=== PATIENT | female | born 1995 | race Caucasian/White ===

== ENCOUNTER 2017-07-09 22:17 | Emergency (ER) | payer MEDICAID ==
[2017-07-09 22:33] VITALS: BMI 27.4
[2017-07-09] MEDS ORDERED: Sodium Chloride 0.9% 1,000 ML IV STA (22:53)
[2017-07-09] MEDS ORDERED: Albuterol-Ipratrop 3 mg / 0.5 (3 ml) UD IH STA (22:53)
--- NOTE | 2017-07-09 22:57 | ED PDOC ---
Arrival/HPI - General Chief Complaint: Shortness Of Breath Time Seen by Provider: 07/09/17 22:51 Historian: Patient - History of Present Illness Narrative History of Present Illness (Text): 07/09/17 22:54 21 y/o female, pmh including asthma, nkda, c/o chest pain and shortness of breath x 1 day. Pt. stated that she woke up this morning with the chest pain with tightness and getting the air in and out, no palpitation, no rash, no numbness or tingling, no nausea or vomiting, no abdominal pain, no diarrhea, no other medical or psychological complaints. Past Medical History - Provider Review Nursing Documentation Reviewed: Yes - Infectious Disease Hx of Infectious Diseases: None - Past Medical History Past Medical History: No Previous - Pulmonary Hx Asthma: Yes ( A CHILD) - Psychiatric Hx Psychophysiologic Disorder: No Hx Substance Use: No - Past Surgical History Past Surgical History: No Previous - Anesthesia Hx Anesthesia: No - Suicidal Assessment Feels Threatened In Home Enviroment: No Family/Social History - Physician Review Nursing Documentation Reviewed: Yes Family/Social History: Unknown Family HX Smoking Status: Never Smoked Hx Alcohol Use: No Hx Substance Use: No Hx Substance Use Treatment: No Allergies/Home Meds Allergies/Adverse Reactions: Allergies No Known Allergies Allergy (Verified 09/11/16 13:01) Review of Systems - Review of Systems Constitutional: absent: Fatigue, Fevers Eyes: absent: Vision Changes ENT: absent: Hearing Changes Respiratory: absent: SOB, Cough Cardiovascular: Chest Pain. absent: Palpitations, Other Gastrointestinal: absent: Abdominal Pain, Nausea, Vomiting Musculoskeletal: absent: Arthralgias Skin: absent: Rash, Pruritis Neurological: absent: Headache, Dizziness Physical Exam Vital Signs Reviewed: Yes Vital Signs Temp Pulse Resp BP Pulse Ox 07/10/17 01:01 98.6 F 79 17 118/69 100 07/09/17 22:56 82 18 125/79 98 07/09/17 22:45 16 Blood Pressure: Normal Pulse: Regular Respiratory Rate: Normal Appearance: Positive for: Well-Appearing, Non-Toxic, Comfortable Pain Distress: Moderate Mental Status: Positive for: Alert and Oriented X 3 - Systems Exam Head: Present: Atraumatic, Normocephalic Pupils: Present: PERRL Extroacular Muscles: Present: EOMI Conjunctiva: Present: Normal Mouth: Present: Moist Mucous Membranes Neck: Present: Normal Range of Motion Respiratory/Chest: Present: Clear to Auscultation, Good Air Exchange, Tender to Palpation (pain is 100% reproducible on the bilateral rib cage regions. ). No: Respiratory Distress, Accessory Muscle Use, Wheezes, Decreased Breath Sounds, Rales, Retracting, Rhonchi, Tachypneic, Other Cardiovascular: Present: Regular Rate and Rhythm, Normal S1, S2, Other (no pedal edema). No: Murmurs Abdomen: Present: Normal Bowel Sounds. No: Tenderness, Distention, Peritoneal Signs Back: Present: Normal Inspection. No: CVA Tenderness, Midline Tenderness, Paraspinal Tenderness Upper Extremity: Present: Normal Inspection. No: Cyanosis, Edema Lower Extremity: Present: Normal Inspection. No: Edema Neurological: Present: GCS=15, CN II-XII Intact, Speech Normal Skin: Present: Warm, Dry, Normal Color. No: Rashes Psychiatric: Present: Alert, Oriented x 3, Normal Insight, Normal Concentration Medical Decision Making ED Course and Treatment: 07/09/17 22:56 -labs -ekg/cxr -IVF/duoneb/toradol 07/10/17 00:55 -EKG: NSR @ 76 BPM, no ST elevation or depression, T wave inversion noted on the lead III. -Chest x-ray show no active disease -Labs are non-significant, negative BNP, negative troponin, negative d-dimer -pt. feels better, will discharge home. -Discharge home with albuterol mdi, motrin, stay hydrated, bed rest, follow up with your own pmd and central office frame wirer within 2 days, return to the ER for any new or worsening signs or symptoms. - Lab Interpretations Lab Results: 07/09/17 23:45 07/09/17 23:45 Lab Results 07/09/17 23:45: WBC 6.4, RBC 4.39, Hgb 12.8, Hct 37.2, MCV 84.7, MCH 29.2, MCHC 34.4, RDW 13.1, Plt Count 177, MPV 10.2, Gran % 61.2, Lymph % (Auto) 31.0, [place] % (Auto) 6.7 H, Eos % (Auto) 0.8 L, Baso % (Auto) 0.3, Gran # 3.91, Lymph # 2.0 , [place] # 0.4, Eos # 0.1, Baso # 0.02 07/09/17 23:45: Sodium 145, Potassium 3.8, Chloride 108 H, Carbon Dioxide 25, Anion Gap 16, BUN 14, Creatinine 0.7, Est GFR ( Amer) > 60, Est GFR (Non- Af Amer) > 60, Random Glucose 104, Calcium 9.2, Total Bilirubin 0.4, AST 19, ALT 21, Alkaline Phosphatase 48, Lactate Dehydrogenase 495, Total Creatine Kinase 72, Troponin I < 0.01, NT-Pro-B Natriuret Pep 37.7, Total Protein 7.0, Albumin 4.3, Globulin 2.7, Albumin/Globulin Ratio 1.6 07/09/17 23:45: D-Dimer, Quantitative 0.30 I have reviewed the lab results: Yes Interpretation: No clinic. lab abnormalty - RAD Interpretation Radiology Orders: 07/09/17 22:53 CHEST PORTABLE [RAD] Stat no active disease Hospital Recruiter: Radiologist - EKG Interpretation EKG Interpretation (Text): 07/10/17 00:51 EKG: NSR @ 76 BPM, no ST elevation or depression, T wave inversion noted on the lead III. Interpreted by ED Physician: Yes Type: 12 lead EKG Comparison: Com.w/previous EKG - Medication Orders Current Medication Orders: Discontinued Medications Albuterol/Ipratropium (Duoneb 3 Mg/0.5 Mg (3 Ml) Ud) 3 ml IH STAT STA Stop: 07/09/17 22:54 Last Admin: 07/09/17 23:38 Dose: 3 ml Sodium Chloride (Sodium Chloride 0.9%) 1,000 mls @ 999 mls/hr IV .Q1H1M STA Stop: 07/09/17 23:53 Last Admin: 07/09/17 23:38 Dose: 999 mls/hr eMAR Start Stop Document 07/09/17 23:38 OCS (Rec: 07/09/17 23:38 OCS [id number]) Intravenous Solution Start Date 07/09/17 Start Time 23:38 Ketorolac Tromethamine (Toradol) 30 mg IVP STAT STA Stop: 07/09/17 22:54 Last Admin: 07/09/17 23:38 Dose: 30 mg MAR Pain Assessment Document 07/09/17 23:38 [facility]CS (Rec: 07/09/17 23:38 [id number] Pain Reassessment Is this a pain reassessment? Yes Sleep Is patient sleeping during reassessment? No Presence of Pain Presence of Pain Yes Pain Scale Used Pain Scale Used Numeric Location Pain Location Body Fermentation Operator Description Description Constant Intensity of Pain at present 10 IVP Administration Document 07/09/17 23:38 [facility] (Rec: 07/09/17 23:38 [id number] Charges for Administration # of IVP Administrations 1 - PA / LITERARY AGENT / Resident Statement / has reviewed & agrees with the documentation as recorded. Disposition/Present on Arrival - Present on Arrival Any Indicators Present on Arrival: No History of DVT/PE: No History of Uncontrolled Diabetes: No Urinary Catheter: No History of Decub. Ulcer: No History Surgical Site Infection Following: None - Disposition Have Diagnosis and Disposition been Completed?: Yes Diagnosis: Costochondritis Disposition: HOME/ ROUTINE Disposition Time: 00:55 Patient Plan: Discharge Condition: IMPROVED Additional Instructions: -Discharge home with albuterol mdi, motrin, stay hydrated, bed rest, follow up with your own pmd and central office frame wirer within 2 days, return to the ER for any new or worsening signs or symptoms. Prescriptions: Albuterol HFA [Ventolin HFA 90 mcg/actuation (8 g)] 2 puff IH [id number] PRN #1 in PRN Reason: Other Ibuprofen [Motrin] 600 mg PO QID PRN #24 tab PRN Reason: Other Referrals: Francie George DO [Primary Care Provider] - Follow up with primary Trey Santa MD [Staff Provider] - Follow up with primary Forms: [employer] (Pashto), WORK NOTE
[2017-07-10 00:07] LABS: BASO # 0.02 K/mm3 (0.0-2.0); BASO % 0.3 % (0.0-3.0); EOS # 0.1 (0.0-0.7); EOS % 0.8 % (1.5-5.0); GRAN # 3.91 (1.4-6.5); GRAN % 61.2 % (50.0-68.0); HEMATOCRIT 37.2 % (36.0-48.0); MEAN CELL VOLUME 84.7 fl (80.0-105.0); MEAN CORPUSCULAR HEMOGLOBIN 29.2 pg (25.0-35.0); MEAN CORPUSCULAR HGB CONC 34.4 g/dl (31.0-37.0); MEAN PLATELET VOLUME 10.2 fl (7.0-11.0); MONO # 0.4 (0.1-0.6); MONO % 6.7 % (1.0-6.0); RED CELL DISTRIBUTION WIDTH 13.1 % (11.5-14.5); WHITE BLOOD COUNT 6.4 10^3/ul (4.5-11.0)
[2017-07-10 00:21] LABS: ALB/GLOB RATIO 1.6 (1.1-1.8); ALKALINE PHOSPHATASE 48 U/L (38-126); ALT/SGPT 21 U/L (7-56); AST/SGOT 19 U/L (14-36); BILIRUBIN,TOTAL 0.4 mg/dL (0.2-1.3); BLOOD UREA NITROGEN 14 mg/dL (7-21); CALCIUM 9.2 mg/dL (8.4-10.5); CARBON DIOXIDE 25 mmol/L (21-33); CHLORIDE 108 mmol/L (98-107); GFR AFRICAN-AMERICAN > 60; GLUCOSE,RANDOM 104 mg/dL (70-110); POTASSIUM 3.8 mmol/L (3.6-5.0); SODIUM 145 mmol/L (132-148)
[2017-07-10 00:43] LABS: TROPONIN I < 0.01 ng/mL
[2017-07-10 01:02] VITALS: BP 118/69; PULSE 79; RESP 17; TEMP 98.6; O2SAT 100
--- NOTE | 2017-07-10 08:59 | RAD ---
HISTORY: medical clearance COMPARISON: 11/11/2015 FINDINGS: LUNGS: No active pulmonary disease. PLEURA: No significant pleural effusion identified, no pneumothorax apparent. CARDIOVASCULAR: Normal. OSSEOUS STRUCTURES: No significant abnormalities. VISUALIZED UPPER ABDOMEN: Normal. OTHER FINDINGS: None. IMPRESSION: No active disease.
--- NOTE | 2017-07-10 09:10 | CARD ---
APPROVED REPORT EKG Measurement Heart [id number] [id number] <Conclusion> Normal sinus rhythm Normal ECG
== END 2017-07-10 00:56 | disposition home or self-care (01) ==
LOC: ED 22:17
DX: M94.0 Chondrocostal junction syndrome [Tietze] (principal)
CPT/HCPCS: 71010; 80053; 82550; 83615; 83880; 84484; 85025; 85378; 93005; 96374; 99283; J1885; J7040

== ENCOUNTER 2017-12-12 14:28 | Emergency (ER) | payer MEDICAID ==
[2017-12-12] MEDS ORDERED: Famotidine 20mg/50ml 20 MG/50 ML BAG IVPB STA (14:53)
[2017-12-12] MEDS ORDERED: Alum-Mag Hydrox-Simethicone Susp (30 mL) PO STA (14:53)
[2017-12-12 14:54] VITALS: BMI 28.3
--- NOTE | 2017-12-12 14:54 | ED PDOC ---
Arrival/HPI - General Chief Complaint: Chest Pain Time Seen by Provider: 12/12/17 14:44 Historian: Patient - History of Present Illness Narrative History of Present Illness (Text): 12/12/17 1450 pt p/w + ~ 1 day onset of intermittent, lasting few min onset of substernal chest tightness/cramps, at most pain is 9-10/10; pt + palpitations, intermittent mild sob, no pleuritic chest pain; no fever/chills/sweats, no abd pain, no n/v, no numbness/tingling, no urinary/bowel changes, no fall/trauma/ sick contact, no travel; pt states similar chest pain had occurred in the past which brought her to [place] [facility] as well as to [facility] and evaluation there as well as here at that time did not reveal any causes of pt's intermittent chest pain; pt became alarmed due to the severity of pain pt denied rashes pt denied other complaints pt is here for further eval. Family HX: unremarkable pt is right hand dominate Time/Duration: 24 hours Symptom Onset: Sudden Quality: Tightness Severity Level: 9, Severe Activities at Onset: Rest Context: Home Past Medical History - Provider Review Nursing Documentation Reviewed: Yes - Travel History Have you recently traveled outside [place] w/in the past 3 mons?: No - Past History Past History: No Previous - Infectious Disease Hx of Infectious Diseases: None - Past Medical History Past Medical History: No Previous - Pulmonary Hx Asthma: Yes ( A CHILD) - Psychiatric Hx Psychophysiologic Disorder: No Hx Substance Use: No - Past Surgical History Past Surgical History: No Previous - Anesthesia Hx Anesthesia: No - Suicidal Assessment Feels Threatened In Home Enviroment: No Family/Social History - Physician Review Nursing Documentation Reviewed: Yes Family/Social History: No Known Family HX Smoking Status: Never Smoked Hx Alcohol Use: No Hx Substance Use: No Hx Substance Use Treatment: No Allergies/Home Meds Allergies/Adverse Reactions: Allergies No Known Allergies Allergy (Verified 09/11/16 13:01) Home Medications: Home Meds Medication Instructions Recorded Confirmed No Known Home Med 12/12/17 12/12/17 Review of Systems - Review of Systems Constitutional: Normal Eyes: Normal ENT: Normal Respiratory: SOB Cardiovascular: Chest Pain, Palpitations Gastrointestinal: Normal Genitourinary Female: Normal Musculoskeletal: Normal Skin: Normal Neurological: Normal Endocrine: Normal Hemo/Lymphatic: Normal Psychiatric: Normal Physical Exam Vital Signs Reviewed: Yes Vital Signs Pulse Resp BP Pulse Ox 12/12/17 17:50 64 18 116/76 98 12/12/17 15:07 60 18 118/71 98 Temperature: Afebrile Blood Pressure: Normal Pulse: Regular Respiratory Rate: Normal Appearance: Positive for: Well-Appearing, Non-Toxic, Comfortable, Other ( resting in bed, comfortable, NAD, alert/awake, GCS = 15, oriented x 3, cooperative) Pain Distress: None Mental Status: Positive for: Alert and Oriented X 3 - Systems Exam Head: Present: Atraumatic, Normocephalic Pupils: Present: PERRL, Other (no nystagmus, no photophobia, sclera anicteric) Extroacular Muscles: Present: EOMI Conjunctiva: Present: Normal Ears: Present: Normal Mouth: Present: Moist Mucous Membranes, Normal Teeth Pharnyx: Present: Normal Nose (External): Present: Atraumatic Nose (Internal): Present: Normal Inspection Neck: Present: Normal Range of Motion, Meningeal Signs, Trachea Midline. No: MIDLINE TENDERNESS Respiratory/Chest: Present: Clear to Auscultation, Good Air Exchange Cardiovascular: Present: Regular Rate and Rhythm, Normal S1, S2. No: Murmurs Abdomen: Present: Normal Bowel Sounds, Other (well nourished female, no focal tenderness, no masses/rebound/guarding/rigidity, no mcburney's point tenderness , no masses/rebound/guarding/rigidity) Back: Present: Normal Inspection. No: Midline Tenderness Upper Extremity: Present: Normal Inspection, Normal ROM, NORMAL PULSES, Neurovascularly Intact, Capillary Refill < 2s Lower Extremity: Present: Normal Inspection, NORMAL PULSES, Normal ROM, Neurovascularly Intact, Capillary Refill < 2 s. No: CALF TENDERNESS, Yakov's Sign Neurological: Present: GCS=15, CN II-XII Intact, Speech Normal Skin: Present: Warm, Normal Color Psychiatric: Present: Alert, Oriented x 3 Medical Decision Making ED Course and Treatment: 12/12/17 1445 Impression: chest pain/palpitation i have consider all the differential diagnosis regarding pt's chief medical complaints/clinical findings, including but are not limited to: atypical chest pain/palpitations A/P: chest pain/palpitations - xray - labs - observe - supportive care 12/12/17 1710 pt is doing well and is comfortable 1745 pt is made aware of her medical results pt is encouraged avoidance of eating prior to sleeping, avoid spicy foods, avoid caffeine products pt is encouraged fluid hydration pt will f/u as directed pt will be discharged home Re-evaluation Time: 17:30 Reassessment Condition: Improved - Lab Interpretations Lab Results: 12/12/17 15:00 12/12/17 15:00 Lab Results 12/12/17 15:00: Sodium 141, Potassium 4.1, Chloride 104, Carbon Dioxide 26, Anion Gap 15, BUN 13, Creatinine 0.7, Est GFR ( Amer) > 60, Est GFR (Non- Af Amer) > 60, Random Glucose 97, Calcium 9.7, Lactate Dehydrogenase 394, Total Creatine Kinase 49, Troponin I < 0.01 12/12/17 15:00: Urine Color Yellow, Urine Appearance Slight-cloudy, Urine pH 6.5 , Ur Specific Solo 1.020, Urine Protein Negative, Urine Glucose (UA) Negative , Urine Ketones Negative, Urine Blood Negative, Urine Nitrate Negative, Urine Bilirubin Negative, Urine Urobilinogen 0.2, Ur Leukocyte Esterase Large H, Urine RBC 0 - 2, Urine WBC 2 - 5, Ur Epithelial Cells 1 - 3, Urine Bacteria Many 12/12/17 15:00: D-Dimer, Quantitative 219 12/12/17 15:00: WBC 5.3, RBC 4.51, Hgb 13.3, Hct 38.6, MCV 85.6, MCH 29.5, MCHC 34.5, RDW 12.9, Plt Count 176, MPV 10.8, Gran % 61.0, Lymph % (Auto) 31.9, [place] % (Auto) 5.9, Eos % (Auto) 0.8 L, Baso % (Auto) 0.4, Gran # 3.23, Lymph # (Auto ) 1.7, [place] # (Auto) 0.3, Eos # (Auto) 0.0, Baso # (Auto) 0.02 I have reviewed the lab results: Yes Interpretation: All labs normal - RAD Interpretation Narrative RAD Interpretations (Text): 12/12/17 16:54 Chest X-ray reviewed by radiologist, shows no active disease. Radiology Orders: 12/12/17 14:51 CHEST TWO VIEWS (PA/LAT) [RAD] Stat Endoscope Technician: Radiologist - EKG Interpretation EKG Interpretation (Text): 12/12/17 15:40 NSR at 60 bpm, normal axis, no ectopy, inverted T in leads III, no st changes, NORMAL EKG; unchanged compare with old ekg 11/2016 Interpreted by ED Physician: Yes Type: 12 lead EKG Comparison: Similar to previous EKG - Medication Orders Current Medication Orders: Discontinued Medications Al Hydrox/Mg Hydrox/Simethicone (Maalox Plus 30 Ml) 30 ml PO STAT STA Stop: 12/12/17 14:54 Last Admin: 12/12/17 15:08 Dose: 30 ml Famotidine (Pepcid 20mg/50ml Premix) 20 mg in 50 mls @ 100 mls/hr IVPB STAT STA Stop: 12/12/17 15:22 Last Admin: 12/12/17 15:08 Dose: 100 mls/hr eMAR Start Stop Document 12/12/17 15:08 GMD (Rec: 12/12/17 15:08 GMD [id number]) Intravenous Solution Start Date 12/12/17 Start Time 15:08 End Date 12/12/17 End time 15:38 Total Infusion Time 30 Disposition/Present on Arrival - Present on Arrival Any Indicators Present on Arrival: No History of DVT/PE: No History of Uncontrolled Diabetes: No Urinary Catheter: No History Surgical Site Infection Following: None - Disposition Have Diagnosis and Disposition been Completed?: Yes Diagnosis: Atypical chest pain, Palpitations Disposition: HOME/ ROUTINE Disposition Time: 17:42 Patient Plan: Discharge Condition: STABLE Discharge Instructions (ExitCare): Palpitations, Chest Pain That Is Not Caused by the Heart (DC), Chest Pain (ED) Print Language: NEPALESE Additional Instructions: Make sure to see your doctor in 1-2 days DRINK PLENTY OF FLUIDS DONT eat before you go to sleep RETURN TO ED IF worse pain, cant breath, persistent vomiting, high fever >101- 102 for hours, altered behavior, unable to urinate, heavy/persistent bleeding, passing out, chest pain, or other medical emergencies Referrals: Ester Rodney, GUN WELDER [Primary Care Provider] - Follow up with primary Forms: [employer] (Icelandic)
[2017-12-12 15:07] VITALS: RESP 18; O2SAT 98
[2017-12-12 15:18] LABS: BASO # 0.02 K/mm3 (0.0-2.0); BASO % 0.4 % (0.0-3.0); EOS % 0.8 % (1.5-5.0); GRAN # 3.23 (1.4-6.5); HEMOGLOBIN 13.3 g/dL (12.0-16.0); LYMPH # 1.7 (1.2-3.4); LYMPH % 31.9 % (22.0-35.0); MEAN CELL VOLUME 85.6 fl (80.0-105.0); MEAN CORPUSCULAR HEMOGLOBIN 29.5 pg (25.0-35.0); MEAN CORPUSCULAR HGB CONC 34.5 g/dl (31.0-37.0); MEAN PLATELET VOLUME 10.8 fl (7.0-11.0); MONO # 0.3 (0.1-0.6); MONO % 5.9 % (1.0-6.0); PH,URINE 6.5 (4.7-8.0); RBC 4.51 10^6/uL (3.5-6.1); RED CELL DISTRIBUTION WIDTH 12.9 % (11.5-14.5); URINE APPEARANCE SLIGHT-CLOUDY (CLEAR); URINE BILIRUBIN NEGATIVE (NEGATIVE); URINE BLOOD NEGATIVE (NEGATIVE); URINE COLOR YELLOW (YELLOW); URINE GLUCOSE (UA) NEGATIVE (NEGATIVE); URINE LEUKOCYTE ESTERASE LARGE Leu/uL (NEGATIVE); URINE NITRATE NEGATIVE (NEGATIVE); URINE PROTEIN NEGATIVE mg/dL (<30 mg/dL); URINE UROBILINOGEN 0.2 E.U./dL (<1 E.U./dL); WHITE BLOOD COUNT 5.3 10^3/ul (4.5-11.0)
[2017-12-12 15:25] LABS: URINE BACTERIA MANY (NEG); URINE RBC 0 - 2 /hpf (0-2)
[2017-12-12 15:52] LABS: BLOOD UREA NITROGEN 13 mg/dL (7-21); CALCIUM 9.7 mg/dL (8.4-10.5); GFR AFRICAN-AMERICAN > 60; GFR NON-AFRICAN AMERICAN > 60
[2017-12-12 16:04] LABS: TROPONIN I < 0.01 ng/mL
--- NOTE | 2017-12-12 16:22 | RAD ---
HISTORY: chest pain, sob COMPARISON: No prior. TECHNIQUE: Chest PA and lateral FINDINGS: LUNGS: No active pulmonary disease. PLEURA: No significant pleural effusion identified. No pneumothorax apparent. CARDIOVASCULAR: Normal. OSSEOUS STRUCTURES: No significant abnormalities. VISUALIZED UPPER ABDOMEN: Normal. OTHER FINDINGS: None. IMPRESSION: No active disease.
[2017-12-12 17:51] VITALS: BP 116/76; PULSE 64
--- NOTE | 2017-12-13 09:36 | CARD ---
APPROVED REPORT EKG Measurement Heart [id number] [place] [id number] [id number] <Conclusion> Normal sinus rhythm Normal ECG
== END 2017-12-12 17:51 | disposition home or self-care (01) ==
LOC: ED 14:28
DX: R07.89 Other chest pain (principal); R00.2 Palpitations

== ENCOUNTER 2018-05-02 02:02 | Inpatient (IN) | payer MEDICAID ==
[2018-05-02 02:02] VITALS: BMI 28.3
--- NOTE | 2018-05-02 03:06 | ED PDOC ---
Arrival/HPI - General Chief Complaint: Abnormal Skin Integrity Time Seen by Provider: 05/02/18 02:33 Historian: Patient - History of Present Illness Narrative History of Present Illness (Text): 05/02/18 03:03 22 year old female, whose past medical history includes recent "tummy tuck surgery" performed 9 days ago in [place], who presents to the emergency department with discharge from incision area. Patient notes a faint pink discharge from area. Patient visited her PMD, who said this was normal. Patient notes today the discharge was more red. Patient concerned for possible bleeding. Patient denies any fever, chills, nausea, vomiting, diarrhea, back pain, neck pain, headache, dizziness, trauma or any other complaints. Time/Duration: < week Symptom Onset: Gradual Symptom Course: Unchanged Context: Home Past Medical History - Provider Review Nursing Documentation Reviewed: Yes - Past History Past History: No Previous - Infectious Disease Hx of Infectious Diseases: None - Past Medical History Past Medical History: No Previous - Pulmonary Hx Asthma: Yes ( A CHILD) - Psychiatric Hx Psychophysiologic Disorder: No Hx Substance Use: No - Past Surgical History Past Surgical History: No Previous - Surgical History Other/Comment: tummy tuck - Anesthesia Hx Anesthesia: No - Suicidal Assessment Feels Threatened In Home Enviroment: No Family/Social History - Physician Review Nursing Documentation Reviewed: Yes Family/Social History: Unknown Family HX Smoking Status: Never Smoked Hx Alcohol Use: No Hx Substance Use: No Hx Substance Use Treatment: No Allergies/Home Meds Allergies/Adverse Reactions: Allergies No Known Allergies Allergy (Verified 05/02/18 02:19) Home Medications: Home Meds Medication Instructions Recorded Confirmed No Known Home Med 12/12/17 05/02/18 Review of Systems - Physician Review All systems were reviewed & negative as marked: Yes - Review of Systems Constitutional: Normal Eyes: Normal ENT: Normal Respiratory: Normal. absent: SOB, Cough Cardiovascular: Normal. absent: Chest Pain Gastrointestinal: Abdominal Pain (residual discomfort from surgery). absent: Diarrhea, Nausea, Vomiting Genitourinary Female: Normal. absent: Dysuria, Frequency Musculoskeletal: Normal. absent: Back Pain, Neck Pain Skin: Normal. absent: Rash Neurological: Normal. absent: Headache, Dizziness Endocrine: Normal Hemo/Lymphatic: Normal Psychiatric: Normal Physical Exam Vital Signs Temp Pulse Resp BP Pulse Ox 05/02/18 03:43 99.4 F 76 16 99/62 L 100 05/02/18 02:15 99.2 F 88 16 100/70 100 - Systems Exam Head: Present: Atraumatic, Normocephalic Pupils: Present: PERRL Extroacular Muscles: Present: EOMI Conjunctiva: Present: Normal Mouth: Present: Moist Mucous Membranes Neck: Present: Normal Range of Motion Respiratory/Chest: Present: Clear to Auscultation, Good Air Exchange. No: Respiratory Distress, Accessory Muscle Use Cardiovascular: Present: Regular Rate and Rhythm, Normal S1, S2. No: Murmurs Abdomen: Present: Tenderness (mild to abdominal surgical site/some surrounding erythema), Other (Some oozing cloudy serosaguinous discharge suture site abdominal area?seroma?infection). No: Distention, Peritoneal Signs Back: Present: Normal Inspection Upper Extremity: Present: Normal Inspection. No: Cyanosis, Edema Lower Extremity: Present: Normal Inspection. No: Edema Neurological: Present: GCS=15, CN II-XII Intact, Speech Normal Skin: Present: Warm, Dry, Normal Color. No: Rashes Psychiatric: Present: Alert, Oriented x 3, Normal Insight, Normal Concentration Medical Decision Making ED Course and Treatment: 05/02/18 03:09 Impression: 22 year old female presents to the emergency department with discharge from "tummy tuck" incision sight. Plan: -- Labs -- Motrin -- Tylenol -- Vancomycin -- Zosyn -- Blood Culture -- Wound Culture -- Reassess and disposition Progress Notes: 05/02/18 04:22 Pt seen by surgical asst, Dr. Lazo. Case discussed with surgical attending , Dr. Herndon, who accepts pt into his service. Patient will be started on IV abx. Wound and blood cultures sent out. - Medication Orders Current Medication Orders: Piperacillin Sod/Tazobactam Sod (Zosyn 3.375 In Ns 100ml) 100 mls @ 200 mls/hr IV STAT STA PRN Reason: Protocol Stop: 05/02/18 04:46 Vancomycin HCl (Vancomycin 1gm) 1 gm in 250 mls @ 133.333 mls/hr IVPB STAT STA PRN Reason: Protocol Stop: 05/02/18 06:09 - Scribe Statement The provider has reviewed the documentation as recorded by the Scribmango Yoon All medical record entries made by the Gabby were at my direction and personally dictated by me. I have reviewed the chart and agree that the record accurately reflects my personal performance of the history, physical exam, medical decision making, and the department course for this patient. I have also personally directed, reviewed, and agree with the discharge instructions and disposition. Disposition/Present on Arrival - Present on Arrival Any Indicators Present on Arrival: No History of DVT/PE: No History of Uncontrolled Diabetes: No Urinary Catheter: No History of Decub. Ulcer: No History Surgical Site Infection Following: None - Disposition Have Diagnosis and Disposition been Completed?: Yes Diagnosis: Surgical wound infection Disposition: HOSPITALIZED Disposition Time: 04:17 Patient Plan: Observation Patient Problems: Current Active Problems Problem Status Onset Surgical wound infection Acute Condition: STABLE Referrals: Thao Colon MD [Primary Care Provider] - Follow up with primary Forms: [employer] (Turkish)
--- NOTE | 2018-05-02 04:08 | CP.PCM.CON ---
History of Present Illness - History of Present Illness History of Present Illness: General Surgery Consult for Consulted for bleeding from abdominoplasty incision Patient is a 22F with no past medical history who had an abdominoplasty done overseas in [place] 9 days ago and presented to ER for dark blood from the incision. Patient states that she noted a small amount of pink fluid from the incision and went to her primary [place] and was told that was normal and given a referral to a surgeon for follow up. Patient states that overnight she woke up and her dressing had moderate amount of saturation with dark red fluid and came to ER to get it evaluated. Patient reports feeling hot and cold but no objective fever was measured. Patient states that there were no complications from the procedure besides nausea for 5-6 days post op and that a drain was placed in the incision which was removed prior to [place] come [place] the [place]. Patient denies any chest pain, SOB, calf tenderness, abdominal pain besides morenita -incisional. Patient denies any family history of bleeding or clotting disorders. Incision was probed with a Qtip at bedside with a open tract explored inferiorly towards the pubis and towards the right side and a large amount of dark red cloudy sanguinous fluid was expressed. PMH: denies PSH: abdominoplasty 04/23/18 Past Patient History - Infectious Disease Hx of Infectious Diseases: None - Past Social History Smoking Status: Never Smoked - PULMONARY Hx Asthma: Yes ( A CHILD) - PSYCHIATRIC Hx Psychophysiologic Disorder: No Hx Substance Use: No - SURGICAL HISTORY Other/Comment: tummy tuck - ANESTHESIA Hx Anesthesia: No Meds Allergies/Adverse Reactions: Allergies Allergy/AdvReac Type Severity Reaction Status Date / Time No Known Allergies Allergy Verified 05/02/18 02:19 Results - Vital Signs Recent Vital Signs: Last Vital Signs Temp 99.4 F 05/02/18 03:43 Pulse 76 05/02/18 03:43 Resp 16 05/02/18 03:43 BP 99/62 L 05/02/18 03:43 Pulse Ox 100 05/02/18 03:43
[2018-05-02] MEDS ORDERED: Piperacillin/Tazobact 3.375 gm 100 ML IV STA (04:17)
[2018-05-02] MEDS ORDERED: Vancomycin 1gm in NS 250ml 1 GM/250 ML BAG IVPB STA (04:17)
--- NOTE | 2018-05-02 04:23 | CP.PCM.HP ---
History of Present Illness - History of Present Illness History of Present Illness: General Surgery Consult for Consulted for bleeding from abdominoplasty incision Patient is a 22F with no past medical history who had an abdominoplasty done overseas in [place] 9 days ago and presented to ER for dark blood from the incision. Patient states that she noted a small amount of pink fluid from the incision and went to her primary doctor [place] and was told that was normal and given a referral to a surgeon for follow up. Patient states that overnight she woke up and her dressing had moderate amount of saturation with dark red fluid and came to ER to get it evaluated. Patient reports feeling hot and cold but no objective fever was measured. Patient states that there were no complications from the procedure besides nausea for 5-6 days post op and that a drain was placed in the incision which was removed prior to [place] the [place]. Patient denies any chest pain, SOB, calf tenderness, abdominal pain besides morenita -incisional. Patient denies any family history of bleeding or clotting disorders. Incision was probed with a Qtip at bedside with a open tract explored inferiorly towards the pubis and towards the right side and a large amount of dark red cloudy sanguinous fluid was expressed. PMH: denies PSH: abdominoplasty 04/23/18 ALL: NKDA Social: Hookah occasionally, denies ETOH and drugs Present on Admission - Present on Admission Any Indicators Present on Admission: No Review of Systems - Review of Systems All systems: reviewed and no additional remarkable complaints except (as per HPI ) Past Patient History - Infectious Disease Hx of Infectious Diseases: None - Past Medical History & Family History Past Medical History?: Yes Past Family History: Reviewed and not pertinent - Past Social History Smoking Status: Hookah occasionally Alcohol: None Drugs: Denies - PULMONARY Hx Asthma: Yes ( A CHILD) - PSYCHIATRIC Hx Psychophysiologic Disorder: No Hx Substance Use: No - SURGICAL HISTORY Other/Comment: abdominoplasty 04/23/18 - ANESTHESIA Hx Anesthesia: No Meds Allergies/Adverse Reactions: Allergies Allergy/AdvReac Type Severity Reaction Status Date / Time No Known Allergies Allergy Verified 05/02/18 02:19 Physical Exam - Constitutional Appears: Well, Non-toxic, No Acute Distress - Head Exam Head Exam: ATRAUMATIC - Eye Exam Eye Exam: Normal appearance. absent: Conjunctival injection, Scleral icterus - ENT Exam ENT Exam: Mucous Membranes Moist, Normal Oropharynx - Respiratory Exam Respiratory Exam: NORMAL BREATHING PATTERN. absent: Accessory Muscle Use, Respiratory Distress - Cardiovascular Exam Cardiovascular Exam: RRR - GI/Abdominal Exam GI & Abdominal Exam: Soft, Tenderness (mild tenderness in all 4 quadrants, morenita- incisional, suprapubic). absent: Distended, Rebound Additional comments: Large lower adominal incision approxiamately 60cm in length with mild erythema around the incision particularly in the middle portion with an area of poor skin approximation about 1cm in length. Approximately 4cm undermining extending to the right and 3cm extending toward the suprapubis. Approximately 30cc's of dark cloudy serosanguinous fluid expressed from middle of incision. - Extremities Exam Extremities exam: Positive for: pedal pulses present. Negative for: calf tenderness, pedal edema, tenderness - Neurological Exam Neurological exam: Alert, Oriented x3 - Psychiatric Exam Psychiatric exam: Normal Affect, Normal Mood - Skin Skin Exam: Dry, Intact (except as noted above), Normal Color, Warm Results - Vital Signs Recent Vital Signs: Last Vital Signs Temp 99.4 F 05/02/18 03:43 Pulse 76 05/02/18 03:43 Resp 16 05/02/18 03:43 BP 99/62 L 05/02/18 03:43 Pulse Ox 100 05/02/18 03:43 - Labs Result Diagrams: 05/02/18 04:10 05/02/18 04:10 Assessment & Plan - Assessment and Plan (Free Text) Assessment: 22F with pain and drainage from lower abdomen abdominoplasty wound, likely seroma with possible wound infection Plan: F/U wound cultures F/U ct of abdomen with IV contrast trend CBC Continue abdominal exams Continue antibiotics, PRN tylenol or motrin SCD's Regular diet Encourage ambulation and incentive spirometer use Discussed with Dr. Katrina Lazo, PGY2
[2018-05-02 04:44] LABS: BASO # 0.01 K/mm3 (0.0-2.0); BASO % 0.1 % (0.0-3.0); EOS # 0.1 (0.0-0.7); EOS % 0.9 % (1.5-5.0); GRAN # 7.13 (1.4-6.5); GRAN % 73.6 % (50.0-68.0); HEMOGLOBIN 11.3 g/dL (12.0-16.0); LYMPH # 1.7 (1.2-3.4); LYMPH % 17.2 % (22.0-35.0); MEAN CELL VOLUME 82.1 fl (80.0-105.0); MEAN CORPUSCULAR HEMOGLOBIN 28.5 pg (25.0-35.0); MEAN CORPUSCULAR HGB CONC 34.7 g/dl (31.0-37.0); MEAN PLATELET VOLUME 9.3 fl (7.0-11.0); MONO # 0.8 (0.1-0.6); MONO % 8.2 % (1.0-6.0); RBC 3.97 10^6/uL (3.5-6.1); RED CELL DISTRIBUTION WIDTH 12.3 % (11.5-14.5); WHITE BLOOD COUNT 9.7 10^3/ul (4.5-11.0)
[2018-05-02 04:52] LABS: INR 1.17 (0.93-1.08); PARTIAL THROMBOPLASTIN TIME 33.4 Seconds (25.1-36.5); PROTHROMBIN TIME 13.4 SECONDS (9.4-12.5)
[2018-05-02 05:42] LABS: ALB/GLOB RATIO 1.2 (1.1-1.8); ALBUMIN 3.5 g/dL (3.0-4.8); ALT/SGPT 33 U/L (7-56); AST/SGOT 19 U/L (14-36); BLOOD UREA NITROGEN 12 mg/dL (7-21); CALCIUM 8.8 mg/dL (8.4-10.5); GFR AFRICAN-AMERICAN > 60; GFR NON-AFRICAN AMERICAN > 60
[2018-05-02] MEDS ORDERED: Iohexol 350 MG/100 ML VIAL ONE (06:04)
[2018-05-02] MEDS ORDERED: DiphenhydrAMINE 50 mg/ml Inj IVP ONE (07:21)
--- NOTE | 2018-05-02 09:58 | CT ---
Date of service: 05/02/2018 PROCEDURE: CT Abdomen and Pelvis with contrast HISTORY: Abdominal pain, POD#9 s/p abdominoplasty COMPARISON: 01/29/2018. TECHNIQUE: CT scan of the abdomen and pelvis was performed after administration of intravenous contrast. Oral contrast was not administered. Coronal and sagittal reformatted images were obtained. Contrast dose: 100 mL Omnipaque 350 Radiation dose: Total exam DLP = 626.98 mGy-cm. This CT exam was performed using one or more of the following dose reduction techniques: Automated exposure control, adjustment of the mA and/or kV according to patient size, and/or use of iterative reconstruction technique. FINDINGS: LOWER THORAX: The visualized lungs are clear. LIVER: Normal in size with homogeneous enhancement. No gross lesion or ductal dilatation. GALLBLADDER AND BILE DUCTS: No calcified gallstones. PANCREAS: Normal in size with homogeneous enhancement. No gross lesion or ductal dilatation. SPLEEN: Normal in size with homogeneous enhancement. ADRENALS: No discrete nodule. KIDNEYS AND URETERS: Normal in size with homogeneous enhancement. No hydronephrosis. No solid mass. VASCULATURE: No aortic aneurysm. BOWEL: The small bowel loops are normal in caliber. There is moderate amount of stool in the colon. No bowel dilatation or obstruction. APPENDIX: Normal appendix. PERITONEUM: No free fluid. No free air. LYMPH NODES: No enlarged lymph nodes. BLADDER: Grossly normal in appearance. REPRODUCTIVE: The uterus is normal in size. There is a 7.9 x 5.5 cm septated cystic mass with rim enhancement in the right adnexa and 5.2 x 4.1 cm cystic mass with rim enhancement in the left adnexa. BONES: No acute fracture. Within normal limits for the patient's age. OTHER FINDINGS: There are postsurgical changes of midline abdominal plasty. There is diffuse subcutaneous edema in the anterior abdominal wall. There is a small amount of air in the superficial lower pelvic wall in keeping with recent surgical intervention. There is a 7.2 x 3.7 x 1.5 cm fluid collection in the lower midline anterior pelvic wall. Additionally, there is a 6.0 x 5.7 x 1.4 cm fluid collection in the left lateral lower anterior pelvic wall. IMPRESSION: 1. Status post abdominal plasty, postsurgical changes in the anterior abdominal wall with small amount of air and diffuse subcutaneous edema. Also limited are 2 discrete fluid collections in the lower anterior pelvic wall, the midline collection measures 7.2 x 3.7 x 1.5 cm and the left lateral collection measures 6.0 x 5.7 x 1.4 cm. These collections may represent postoperative fluid collection/seroma however sterility of these collections cannot be determined on the basis of imaging. Clinical correlation and follow-up is advised. 2. Large cystic masses in each adnexa may represent ovarian cyst however tubo-ovarian abscess is also a consideration. Clinical correlation and follow-up is advised.
[2018-05-02] MEDS: ceFAZolin 1 gm in NS 1 GM/100 ML BAG IVPB SCH ×2 (09:59→18:01)
--- NOTE | 2018-05-02 16:20 | US ---
Date of service: 05/02/2018 HISTORY: cystic pelvic masses COMPARISON: CT abdomen and pelvis performed the same day. TECHNIQUE: Transabdominal pelvic ultrasound was performed. FINDINGS: UTERUS: Measures 8.7 x 3.8 x 4.0 cm. Normal in size and appearance. No fibroid or other mass lesion seen. ENDOMETRIUM: Measures 5 mm in diameter. The central endometrial echo complex is normal in appearance. CERVIX: No cervical abnormality identified. RIGHT OVARY: Enlarged and measures 6.2 x 3.9 x 5.1 cm. No solid mass. Normal flow. There is a 4.7 x 2.5 x 4.2 cm cyst in the right ovary. LEFT OVARY: Measures 4.0 x 3.1 x 3.5 cm. No solid mass. Normal flow. There is a 2.9 x 2.5 x 2.5 cm cyst. FREE FLUID: No significant free fluid noted. OTHER FINDINGS: None. IMPRESSION: 1. 4.7 x 2.5 x 4.2 cm cyst in the right ovary. No evidence for torsion. Follow-up ultrasound 3-6 month interval is recommended to assess stability/resolution. 2. 2.9 x 2.5 x 2.5 cm cyst in the left ovary. No evidence for torsion.
[2018-05-03 07:46] LABS: BASO # 0.01 K/mm3 (0.0-2.0); BASO % 0.1 % (0.0-3.0); EOS # 0.2 (0.0-0.7); EOS % 1.6 % (1.5-5.0); GRAN # 7.16 (1.4-6.5); LYMPH # 1.5 (1.2-3.4); LYMPH % 15.7 % (22.0-35.0); MEAN CELL VOLUME 83.9 fl (80.0-105.0); MEAN CORPUSCULAR HEMOGLOBIN 28.1 pg (25.0-35.0); MEAN CORPUSCULAR HGB CONC 33.4 g/dl (31.0-37.0); MEAN PLATELET VOLUME 9.6 fl (7.0-11.0); MONO # 0.6 (0.1-0.6); MONO % 6.6 % (1.0-6.0); RBC 3.92 10^6/uL (3.5-6.1); RED CELL DISTRIBUTION WIDTH 12.6 % (11.5-14.5); WHITE BLOOD COUNT 9.4 10^3/ul (4.5-11.0)
--- NOTE | 2018-05-03 09:40 | CP.PCM.PN ---
Subjective - Date & Time of Evaluation Date of Evaluation: 05/03/18 Time of Evaluation: 08:15 - Subjective Subjective: General surgery progress note for Dr. Herndon Patient seen this am at beside. she is comfortable and resting in bed. she has been up walking in her room and had no difficulty. She is continuing to have drainage from the central portion of the incision site but denies f/c/n/v and abdominal pain other than at her incision site. Objective - Vital Signs/Intake and Output Vital Signs (last 24 hours): Temp Pulse Resp BP Pulse Ox 98.5 F 81 20 107/67 97 05/03/18 06:00 05/03/18 06:00 05/03/18 06:00 05/03/18 06:00 05/03/18 06:00 Intake and Output: 05/03/18 05/03/18 06:59 18:59 Intake Total 720 Balance 720 - Medications Medications: Current Medications Acetaminophen (Tylenol 325mg Tab) 650 mg PO Q6 PRN PRN Reason: Pain, moderate (4-7) Cefazolin Sodium (Ancef 1gm In Ns) 1 gm in 100 mls @ 100 mls/hr IVPB Q8H [facility] Last Admin: 05/02/18 18:01 Dose: 100 mls/hr Ibuprofen (Motrin Tab) 400 mg PO Q6H PRN PRN Reason: Pain, Mild (1-3) - Labs Labs: 05/03/18 07:00 PT 13.4 SECONDS (9.4-12.5) H 05/02/18 04:10 INR 1.17 (0.93-1.08) H 05/02/18 04:10 APTT 33.4 Seconds (25.1-36.5) 05/02/18 04:10 - Constitutional Appears: Well, Non-toxic, No Acute Distress - Head Exam Head Exam: ATRAUMATIC, NORMOCEPHALIC - ENT Exam ENT Exam: Mucous Membranes Moist - Respiratory Exam Respiratory Exam: NORMAL BREATHING PATTERN - Cardiovascular Exam Cardiovascular Exam: REGULAR RHYTHM - GI/Abdominal Exam GI & Abdominal Exam: Soft. absent: Firm, Guarding, Rigid, Rebound Additional comments: incisional tenderness on exam, no other abdominal tenderness, central portion of incision is erythematous and has an opening from which 75 cc of first seropurulent and then serosanguinous fluid was expressed on exam, small black eschar is present to the right of the central opening, lateral edges of the incision appear CDI - Extremities Exam Extremities Exam: absent: Calf Tenderness, Pedal Edema - Psychiatric Exam Psychiatric exam: Normal Affect, Normal Mood - Skin Skin Exam: Erythema, Warm Additional comments: central portion of incision is erythematous and has an opening from which 75 cc of first seropurulent and then serosanguinous fluid was expressed on exam, monocryl sutures are visible in this opening, small black eschar is present to the right of the central opening, lateral edges of the incision appear CDI Assessment and Plan - Assessment and Plan (Free Text) Assessment: 22 yr old female s/p abdominoplasty in [place] on 04/23, POD 10 with seropurulent /serosanguinous fluid drainage from the incision Plan: -WBC 9.4, patient was afebrile overnight, 75 cc of seropurulent/serosanguinous discharge expressed on exam - wound was packed with 1/4 inch iodoform and abd pads placed over it, nursing may reinforce as needed - consulted Dr. Mcdowell plastic surgeon who suggested that we place patient on Vanc and Unasyn, will see patient later today - placed ID consult for further abx treatment appreciate recs - consulted OBGYN for recs on ovarian cysts, per recs pelvic US was done and showed benign cysts, Dr. gandhi was informed and patient was informed to establish care for follow up - Discussed plan with Dr. Katrina Arroyo, PGY 1
[2018-05-03] MEDS ORDERED: Vancomycin 500 mg Inj IVPB SCH (10:00)
--- NOTE | 2018-05-03 10:19 | CP.PCM.CON ---
History of Present Illness - History of Present Illness History of Present Illness: PLASTIC SURGERY CONSULT FOR DR. PALUMBO Patient is a 22F with no PMHx who had an abdominoplasty in [place] 04/23/18 and presented to ER for dark blood from the incision. Patient states that she noted a small amount of pink fluid from the incision and went to her primary [place] and was told that was normal and given a referral to a surgeon for follow up. Patient states that overnight she woke up and her dressing had moderate amount of saturation with dark red fluid and came to ER to get it evaluated. Patient reports feeling hot and cold but no objective fever was measured. Patient states that there were no complications from the procedure besides nausea for 5-6 days post op and that a drain was placed in the incision which was removed prior [place]. Patient denies any chest pain, SOB, calf tenderness, abdominal pain besides morenita-incisional. Patient denies any family history of bleeding or clotting disorders. Patient reports that she is tolerating her diet, denies nausea or vomiting. Denies abdominal pain except for "stinging" at the incision site. Incision was probed with a Qtip at bedside with large amount of seropurulent drainage expressed. PMH: denies PSH: abdominoplasty 04/23/18 ALL: NKDA Social: Hookah occasionally, denies ETOH and drugs Review of Systems - Review of Systems All systems: reviewed and no additional remarkable complaints except (as per HPI ) Past Patient History - Infectious Disease Hx of Infectious Diseases: None - Past Medical History & Family History Past Medical History?: Yes Past Family History: Reviewed and not pertinent - Past Social History Smoking Status: Hookah occasionally Alcohol: None Drugs: Denies - PULMONARY Hx Asthma: Yes ( A CHILD) - MUSCULOSKELETAL/RHEUMATOLOGICAL Hx Falls: No - PSYCHIATRIC Hx Psychophysiologic Disorder: No Hx Substance Use: No - SURGICAL HISTORY Other/Comment: abdominoplasty 04/23/18 - ANESTHESIA Hx Anesthesia: No Meds Allergies/Adverse Reactions: Allergies Allergy/AdvReac Type Severity Reaction Status Date / Time vancomycin Allergy Intermediate REDNESS Verified 05/03/18 10:21 - Medications Medications: Current Medications Acetaminophen (Tylenol 325mg Tab) 650 mg PO Q6 PRN PRN Reason: Pain, moderate (4-7) Cefazolin Sodium (Ancef 1gm In Ns) 1 gm in 100 mls @ 100 mls/hr IVPB Q8H [facility] Last Admin: 05/02/18 18:01 Dose: 100 mls/hr Ampicillin Sodium/Sulbactam (Sodium 3 gm/ Sodium Chloride) 100 mls @ 200 mls/ hr IVPB Q6 [facility] PRN Reason: Protocol Ibuprofen (Motrin Tab) 400 mg PO Q6H PRN PRN Reason: Pain, Mild (1-3) Vancomycin HCl (Vancomycin Inj) 740 mg 10 mg/kg (740 mg) IVPB Q6H [facility] PRN Reason: Protocol Physical Exam - Constitutional Appears: Well, Non-toxic, No Acute Distress - Head Exam Head Exam: ATRAUMATIC, NORMAL INSPECTION - Eye Exam Eye Exam: EOMI, Normal appearance - Respiratory Exam Respiratory Exam: NORMAL BREATHING PATTERN. absent: Respiratory Distress - Cardiovascular Exam Cardiovascular Exam: +S1, +S2 - GI/Abdominal Exam GI & Abdominal Exam: Soft. absent: Distended, Firm, Guarding, Rebound, Rigid, Tenderness Additional comments: Abdominoplasty incision with 2 small openings in suprapubic area with visible monocryl. Other non absorbable simple interrupted sutures present intermittently. Copious amount of seropurulent drainage expressed Area packed with iodaform - Neurological Exam Neurological exam: Alert, CN II-XII Intact, Oriented x3 - Psychiatric Exam Psychiatric exam: Normal Affect, Normal Mood - Skin Skin Exam: Dry Results - Vital Signs Recent Vital Signs: Last Vital Signs Temp 98.5 F 05/03/18 06:00 Pulse 81 05/03/18 06:00 Resp 20 05/03/18 06:00 BP 107/67 05/03/18 06:00 Pulse Ox 97 05/03/18 06:00 - Labs Result Diagrams: 05/03/18 07:00 05/02/18 04:10 Labs: Laboratory Results - last 24 hr 05/03/18 07:00 WBC 9.4 RBC 3.92 Hgb 11.0 L Hct 32.9 L MCV 83.9 MCH 28.1 MCHC 33.4 RDW 12.6 Plt Count 250 MPV 9.6 Gran % 76.0 H Lymph % (Auto) 15.7 L [place] % (Auto) 6.6 H Eos % (Auto) 1.6 Baso % (Auto) 0.1 Gran # 7.16 H Lymph # (Auto) 1.5 [place] # (Auto) 0.6 Eos # (Auto) 0.2 Baso # (Auto) 0.01 Assessment & Plan - Assessment and Plan (Free Text) Assessment: 22 yr old female s/p abdominoplasty in [place] on 04/23, POD #10 with seropurulent/serosanguinous fluid drainage from the incision Plan: - 75 cc of seropurulent/serosanguinous discharge expressed on exam - Wound was packed with 1/4 inch iodoform - Vancomycin and Unasyn - Pt given option of OR today for washout and wound vac vs conservative treatment with iodaform & possible IR drainage - pt prefers conservative management - Will discuss with IR tomorrow if any IR drainage possible - Discussed plan with Dr. Jeremias Sutton PGY-4
[2018-05-03] MEDS ORDERED: DiphenhydrAMINE 50 mg/ml Inj IVP PRN (10:33)
[2018-05-03] MEDS ORDERED: Lactated Ringer's 1,000 ML IV SCH (11:30)
[2018-05-03] MEDS: Meropenem IV 1 gm in NS 50 ML IVPB SCH (21:08)
[2018-05-03] MEDS: Linezolid 600 mg in D5W 300 ml 600 MG/300 ML BAG IVPB SCH (21:42)
--- NOTE | 2018-05-04 02:22 | CON ---
DATE: 05/03/2018 LOCATION: The patient is seen in room 566, bed 1. CHIEF COMPLAINT: Abdominal wound infection from several days. HISTORY OF PRESENT ILLNESS: This is a 22-year-old female with past medical history of obesity who traveled to [facility] approximately 10 days ago and had tummy tuck surgery and liposuction by Dr. Schuster in [facility] and now returns with pain and discharge from the wound and erythema associated with fevers at home and chills, which she states since the drainage started, fevers and chills have improved. No nausea or vomiting. No dysuria or frequency. No headaches or blurred vision. No chest pain. No shortness of breath. PAST MEDICAL HISTORY: Noncontributory except for the obesity and asthma as a child. PAST SURGICAL HISTORY: Only significant for recent surgery. ALLERGIC: PATIENT IS ALLERGIC TO VANCOMYCIN, TYPE OF ALLERGY IS NOT CLEAR. MEDICATIONS AT HOME: No medications at home. Other than travel to [place] where the surgery was done, no other operation. PHYSICAL EXAMINATION: VITAL SIGNS: Temperature is 99.2, heart rate is 88, respiratory rate of 20, blood pressure is 119/70, patient is saturating at 99% on room air. HEENT: Unremarkable. NECK: Supple. LUNGS: Have decreased breath sounds. HEART: Normal S1, S2. ABDOMEN: Soft, nontender. In the abdominal wound, there is mild erythema; at the incision site, there is packing and there was discharge apparently. LABORATORY DATA: Reveals a white count of 9.7, hemoglobin of 11, platelets of 258 and 73% granulocytosis, coagulations noted. The chemistries are reviewed. Microbiology reveals the blood cultures have no growth. The wound culture is pending. Patient had a CAT scan of the abdomen and pelvis, which shows patient has two discrete fluid collections on the CAT scan of abdominal pelvic wall, measuring 7 x 4 x 1.5 cm and 6. x 6 x 1.5 cm postoperative fluid collection or seroma. She also had a pelvic ultrasound, which is noted. ASSESSMENT AND PLAN: This is a 22-year-old female with obesity, status post tummy tuck surgery at [place] and liposuction approximately 9 to 10 days ago, now returning with abdominal wound, cellulitis and abscess by abdominal wall abscess with questionable developed rash on her neck and face, on vancomycin. We will give Zyvox and meropenem. Pending wound cultures and surgical intervention and we will follow with you. Joseph Rodriguez MD
[2018-05-04] MEDS: Meropenem IV 1 gm in NS 50 ML IVPB SCH ×3 (05:35→21:10)
[2018-05-04 06:56] LABS: BASO # 0.01 K/mm3 (0.0-2.0); BASO % 0.1 % (0.0-3.0); EOS # 0.1 (0.0-0.7); EOS % 1.8 % (1.5-5.0); GRAN # 5.53 (1.4-6.5); GRAN % 70.5 % (50.0-68.0); HEMOGLOBIN 10.7 g/dL (12.0-16.0); LYMPH # 1.5 (1.2-3.4); LYMPH % 19.6 % (22.0-35.0); MEAN CORPUSCULAR HGB CONC 33.8 g/dl (31.0-37.0); MEAN PLATELET VOLUME 9.6 fl (7.0-11.0); MONO # 0.6 (0.1-0.6); RBC 3.82 10^6/uL (3.5-6.1); RED CELL DISTRIBUTION WIDTH 12.4 % (11.5-14.5); WHITE BLOOD COUNT 7.9 10^3/ul (4.5-11.0)
--- NOTE | 2018-05-04 08:03 | CP.PCM.PN ---
Subjective - Date & Time of Evaluation Date of Evaluation: 05/04/18 Time of Evaluation: 08:00 - Subjective Subjective: General surgery progress note for Dr. Herndon Patient seen and examined this am. 10-15 CC of serpurulent/serosanguinous fluid from incision opening. opening was packed with 1/4 inch iodoform gauze. Patient denies f/c/n/v/abdominal pain or any other associated symptoms. Objective - Vital Signs/Intake and Output Vital Signs (last 24 hours): Temp Pulse Resp BP Pulse Ox 97.8 F 63 20 104/57 L 99 05/04/18 06:00 05/04/18 06:00 05/04/18 06:00 05/04/18 06:00 05/04/18 06:00 Intake and Output: 05/04/18 05/04/18 06:59 18:59 Intake Total 240 Balance 240 - Medications Medications: Current Medications Acetaminophen (Tylenol 325mg Tab) 650 mg PO Q6 PRN PRN Reason: Pain, moderate (4-7) Diphenhydramine HCl (Benadryl) 25 mg IVP Q4H PRN PRN Reason: Allergy symptoms Meropenem (Merrem Iv 1 Gm Premix) 50 mls @ 100 mls/hr IVPB Q8 [facility] PRN Reason: Protocol Stop: 05/12/18 22:01 Last Admin: 05/04/18 05:35 Dose: 100 mls/hr Linezolid (Zyvox 600mg/300ml D5w) 600 mg in 300 mls @ 200 mls/hr IVPB Q12 [facility] PRN Reason: Protocol Stop: 05/12/18 22:01 Last Admin: 05/03/18 21:42 Dose: 200 mls/hr Ibuprofen (Motrin Tab) 400 mg PO Q6H PRN PRN Reason: Pain, Mild (1-3) Last Admin: 05/03/18 21:15 Dose: 400 mg - Labs Labs: 05/04/18 06:20 PT 13.4 SECONDS (9.4-12.5) H 05/02/18 04:10 INR 1.17 (0.93-1.08) H 05/02/18 04:10 APTT 33.4 Seconds (25.1-36.5) 05/02/18 04:10 - Constitutional Appears: Well, Non-toxic, No Acute Distress - Head Exam Head Exam: ATRAUMATIC, NORMOCEPHALIC - ENT Exam ENT Exam: Mucous Membranes Moist - Respiratory Exam Respiratory Exam: NORMAL BREATHING PATTERN - GI/Abdominal Exam GI & Abdominal Exam: Soft. absent: Distended, Firm, Guarding, Rigid, Rebound Additional comments: mild tenderness around the medial opening of the incision - Extremities Exam Extremities Exam: absent: Calf Tenderness, Pedal Edema - Neurological Exam Neurological Exam: Alert, Awake, Oriented x3 - Psychiatric Exam Psychiatric exam: Normal Affect, Normal Mood - Skin Skin Exam: Dry, Normal Color, Warm Additional comments: there is a 3-4 cm opening at the central portion of the abdominoplasty incision. the area is erythematous with a small black eschar on the right lateral portion of the wound, 10-15 cc of fluid mentioned above was expressed, no foul odor was present Assessment and Plan - Assessment and Plan (Free Text) Assessment: 22 yr old female POD 11 from abdominoplasty in [place] with fluid collections and incisional opening centrally Plan: - repeat Ct this Am to evaluate for IR drainage vs conservative management vs OR washout - second culture noted to grow Corynebacterium, will continue abx per ID recs - patient tolerating diet well, no fevers, n/v/d - will discuss with Dr. Stubbs, all further recs per him Beverly Arroyo, PGY 1
[2018-05-04] MEDS: Linezolid 600 mg in D5W 300 ml 600 MG/300 ML BAG IVPB SCH ×2 (09:09→22:31)
--- NOTE | 2018-05-04 09:15 | CP.PCM.PN ---
Subjective - Date & Time of Evaluation Date of Evaluation: 05/04/18 Time of Evaluation: 07:42 - Subjective Subjective: General Surgery progress note for Dr. Mcdowell Patient seen and examined this am. 10-15 CC of serpurulent/serosanguinous fluid from incision opening. opening was packed with 1/4 inch iodoform gauze. Patient denies f/c/n/v/abdominal pain or any other associated symptoms. Objective - Vital Signs/Intake and Output Vital Signs (last 24 hours): Temp Pulse Resp BP Pulse Ox 97.8 F 63 20 104/57 L 99 05/04/18 06:00 05/04/18 06:00 05/04/18 06:00 05/04/18 06:00 05/04/18 06:00 Intake and Output: 05/04/18 05/04/18 06:59 18:59 Intake Total 240 Balance 240 - Medications Medications: Current Medications Acetaminophen (Tylenol 325mg Tab) 650 mg PO Q6 PRN PRN Reason: Pain, moderate (4-7) Diphenhydramine HCl (Benadryl) 25 mg IVP Q4H PRN PRN Reason: Allergy symptoms Meropenem (Merrem Iv 1 Gm Premix) 50 mls @ 100 mls/hr IVPB Q8 KENNEDY PRN Reason: Protocol Stop: 05/12/18 22:01 Last Admin: 05/04/18 05:35 Dose: 100 mls/hr Linezolid (Zyvox 600mg/300ml D5w) 600 mg in 300 mls @ 200 mls/hr IVPB Q12 KENNEDY PRN Reason: Protocol Stop: 05/12/18 22:01 Last Admin: 05/04/18 09:09 Dose: 200 mls/hr Ibuprofen (Motrin Tab) 400 mg PO Q6H PRN PRN Reason: Pain, Mild (1-3) Last Admin: 05/03/18 21:15 Dose: 400 mg - Labs Labs: 05/04/18 06:20 PT 13.4 SECONDS (9.4-12.5) H 05/02/18 04:10 INR 1.17 (0.93-1.08) H 05/02/18 04:10 APTT 33.4 Seconds (25.1-36.5) 05/02/18 04:10 - Constitutional Appears: Well, Non-toxic, No Acute Distress - Head Exam Head Exam: ATRAUMATIC, NORMOCEPHALIC - ENT Exam ENT Exam: Mucous Membranes Moist - Respiratory Exam Respiratory Exam: NORMAL BREATHING PATTERN - Cardiovascular Exam Cardiovascular Exam: +S1, +S2 - GI/Abdominal Exam GI & Abdominal Exam: Soft, Tenderness. absent: Firm, Guarding, Rigid, Rebound Additional comments: mild tenderness at the medial incisional opening - Extremities Exam Extremities Exam: absent: Calf Tenderness, Pedal Edema - Neurological Exam Neurological Exam: Alert, Awake, Oriented x3 - Psychiatric Exam Psychiatric exam: Normal Affect, Normal Mood - Skin Skin Exam: Dry, Erythema, Warm Additional comments: there is a 3-4 cm opening at the central portion of the abdominoplasty incision. the area is erythematous with a small black eschar on the right lateral portion of the wound, 10-15 cc of fluid mentioned above was expressed, no foul odor was present Assessment and Plan - Assessment and Plan (Free Text) Assessment: 22 yr old female s/p abdominoplasty in [place] on 04/23, with seroma formation and fluid drainage Plan: - repeat Ct this Am to evaluate for IR drainage vs conservative management vs OR washout - second culture noted to grow Corynebacterium, will continue abx per ID recs - patient tolerating diet well, no fevers, n/v/d - d/w Dr. Mcdowell, all further recs per him Beverly Arroyo, PGY 1
--- NOTE | 2018-05-04 11:03 | CT ---
Date of service: 05/04/2018 PROCEDURE: CT Abdomen and Pelvis without intravenous contrast HISTORY: reevaluate fluid collections, patient has packing COMPARISON: None. TECHNIQUE: Technique. Contrast dose: Radiation dose: Total exam DLP = mGy-cm. This CT exam was performed using one or more of the following dose reduction techniques: Automated exposure control, adjustment of the mA and/or kV according to patient size, and/or use of iterative reconstruction technique. FINDINGS: LOWER THORAX: Unremarkable. LIVER: Unremarkable. No gross lesion or ductal dilatation. GALLBLADDER AND BILE DUCTS: Unremarkable. PANCREAS: Unremarkable. No gross lesion or ductal dilatation. SPLEEN: Unremarkable. ADRENALS: Unremarkable. No mass. KIDNEYS AND URETERS: Unremarkable. No hydronephrosis. No solid mass. VASCULATURE: Unremarkable. No aortic aneurysm. BOWEL: Unremarkable. No obstruction. No gross mural thickening. APPENDIX: Unremarkable. Normal appendix. PERITONEUM: Unremarkable. No free fluid. No free air. LYMPH NODES: Unremarkable. No enlarged lymph nodes. BLADDER: Unremarkable. REPRODUCTIVE: Stable bilateral ovarian cysts/cystic lesions measuring 6.9 centimeters on the right and 4.1 centimeters on the left BONES: No acute fracture. OTHER FINDINGS: Status post abdominal plasty with decrease in air-filled collection with packing in the lower anterior pelvic wall measuring 5.1 x 1.7 centimeters versus previously 8.6 x 1.8 centimeters. IMPRESSION: Status post abdominal plasty with decrease in air-filled collection with packing in the lower anterior pelvic wall measuring 5.1 x 1.7 centimeters versus previously 8.6 x 1.8 centimeters. Stable bilateral ovarian cysts/cystic lesions.
--- NOTE | 2018-05-04 14:37 | CP.PCM.PN ---
Subjective - Date & Time of Evaluation Date of Evaluation: 05/04/18 Time of Evaluation: 12:50 - Subjective Subjective: Comfortable, no fevers. Objective - Vital Signs/Intake and Output Vital Signs (last 24 hours): Temp Pulse Resp BP Pulse Ox 97.8 F 63 20 104/57 L 99 05/04/18 06:00 05/04/18 06:00 05/04/18 06:00 05/04/18 06:00 05/04/18 06:00 Intake and Output: 05/04/18 05/04/18 06:59 18:59 Intake Total 240 Balance 240 - Medications Medications: Current Medications Acetaminophen (Tylenol 325mg Tab) 650 mg PO Q6 PRN PRN Reason: Pain, moderate (4-7) Diphenhydramine HCl (Benadryl) 25 mg IVP Q4H PRN PRN Reason: Allergy symptoms Meropenem (Merrem Iv 1 Gm Premix) 50 mls @ 100 mls/hr IVPB Q8 KENNEDY PRN Reason: Protocol Stop: 05/12/18 22:01 Last Admin: 05/04/18 13:05 Dose: 100 mls/hr Linezolid (Zyvox 600mg/300ml D5w) 600 mg in 300 mls @ 200 mls/hr IVPB Q12 KENNEDY PRN Reason: Protocol Stop: 05/12/18 22:01 Last Admin: 05/04/18 09:09 Dose: 200 mls/hr Ibuprofen (Motrin Tab) 400 mg PO Q6H PRN PRN Reason: Pain, Mild (1-3) Last Admin: 05/03/18 21:15 Dose: 400 mg - Labs Labs: 05/04/18 06:20 PT 13.4 SECONDS (9.4-12.5) H 05/02/18 04:10 INR 1.17 (0.93-1.08) H 05/02/18 04:10 APTT 33.4 Seconds (25.1-36.5) 05/02/18 04:10 - Constitutional Appears: Non-toxic - Respiratory Exam Respiratory Exam: Decreased Breath Sounds - Cardiovascular Exam Cardiovascular Exam: +S1, +S2 - GI/Abdominal Exam GI & Abdominal Exam: Soft. absent: Tenderness Additional comments: dressings in place Assessment and Plan - Assessment and Plan (Free Text) Plan: Assessment surgical site infection with abscess, abdominal/pelvic wall S/P tummy tuck Plan Continue Zyvox and Merrem day 2 pending final culture results
[2018-05-04 23:20] VITALS: BP 120/66; PULSE 74; RESP 16; TEMP 98.4; O2SAT 99
[2018-05-05] MEDS: Meropenem IV 1 gm in NS 50 ML IVPB SCH (05:35)
[2018-05-05 06:52] LABS: BASO # 0.02 K/mm3 (0.0-2.0); BASO % 0.2 % (0.0-3.0); EOS # 0.1 (0.0-0.7); EOS % 1.7 % (1.5-5.0); GRAN # 5.8 (1.4-6.5); GRAN % 68.5 % (50.0-68.0); HEMOGLOBIN 10.4 g/dL (12.0-16.0); LYMPH # 1.8 (1.2-3.4); LYMPH % 21.5 % (22.0-35.0); MEAN CELL VOLUME 82.9 fl (80.0-105.0); MEAN CORPUSCULAR HEMOGLOBIN 28.3 pg (25.0-35.0); MEAN CORPUSCULAR HGB CONC 34.1 g/dl (31.0-37.0); MEAN PLATELET VOLUME 9.5 fl (7.0-11.0); MONO # 0.7 (0.1-0.6); MONO % 8.1 % (1.0-6.0); RBC 3.68 10^6/uL (3.5-6.1); RED CELL DISTRIBUTION WIDTH 12.4 % (11.5-14.5); WHITE BLOOD COUNT 8.5 10^3/ul (4.5-11.0)
--- NOTE | 2018-05-05 08:42 | CP.PCM.PN ---
Subjective - Date & Time of Evaluation Date of Evaluation: 05/05/18 Time of Evaluation: 07:00 - Subjective Subjective: PLASTIC SURGERY PROGRESS NOTE FOR DR. PALUMBO Patient seen and examined at bedside. She is doing well, tolerating diet, denies nausea or vomiting. Denies abdominal pain. Objective - Vital Signs/Intake and Output Vital Signs (last 24 hours): Temp Pulse Resp BP Pulse Ox 98.4 F 74 16 120/66 99 05/04/18 23:19 05/04/18 23:19 05/04/18 23:19 05/04/18 23:19 05/04/18 23:19 Intake and Output: 05/05/18 05/05/18 06:59 18:59 Intake Total 720 Balance 720 - Medications Medications: Current Medications Acetaminophen (Tylenol 325mg Tab) 650 mg PO Q6 PRN PRN Reason: Pain, moderate (4-7) Diphenhydramine HCl (Benadryl) 25 mg IVP Q4H PRN PRN Reason: Allergy symptoms Meropenem (Merrem Iv 1 Gm Premix) 50 mls @ 100 mls/hr IVPB Q8 KENNEDY PRN Reason: Protocol Stop: 05/12/18 22:01 Last Admin: 05/05/18 05:35 Dose: 100 mls/hr Linezolid (Zyvox 600mg/300ml D5w) 600 mg in 300 mls @ 200 mls/hr IVPB Q12 KENNEDY PRN Reason: Protocol Stop: 05/12/18 22:01 Last Admin: 05/04/18 22:31 Dose: 200 mls/hr Ibuprofen (Motrin Tab) 400 mg PO Q6H PRN PRN Reason: Pain, Mild (1-3) Last Admin: 05/05/18 01:35 Dose: 400 mg - Labs Labs: 05/05/18 06:20 PT 13.4 SECONDS (9.4-12.5) H 05/02/18 04:10 INR 1.17 (0.93-1.08) H 05/02/18 04:10 APTT 33.4 Seconds (25.1-36.5) 05/02/18 04:10 - Constitutional Appears: Well, Non-toxic, No Acute Distress - Head Exam Head Exam: ATRAUMATIC, NORMAL INSPECTION - Eye Exam Eye Exam: EOMI, Normal appearance - Respiratory Exam Respiratory Exam: NORMAL BREATHING PATTERN. absent: Respiratory Distress - Cardiovascular Exam Cardiovascular Exam: +S1, +S2 - GI/Abdominal Exam GI & Abdominal Exam: Soft, Tenderness (mild tenderness around umbilical incision ). absent: Distended, Firm, Guarding, Rigid, Rebound Additional comments: Abdominoplasty wound with iodaform packing in place - Neurological Exam Neurological Exam: Alert, Awake, Oriented x3 - Psychiatric Exam Psychiatric exam: Normal Affect, Normal Mood Assessment and Plan - Assessment and Plan (Free Text) Assessment: 22 yr old female s/p abdominoplasty in [place] on 04/23, POD #12 with seroma Plan: - Wound packed with 1/4 inch iodoform - Wound cx: coagulase negative staph & cornebacterium - On Merrem and Zyvox per ID - Repeat CT yesterday showed decrease in air filled collection - Showed pt's mother how to do packing changes at home - Discussed with Dr. Rodriguez and pt to be DCed home on Augmentin and Zyvox - Discussed plan with Dr. Jeremias Sutton PGY-4
[2018-05-05] MEDS: Linezolid 600 mg in D5W 300 ml 600 MG/300 ML BAG IVPB SCH (09:50)
--- NOTE | 2018-05-05 12:16 | CP.PCM.DIS ---
Provider - Provider Date of Admission: 05/04/18 14:32 Attending physician: Jamin Herndon MD Primary care physician: Thao Colon MD Consults: Dr. Valencia (ID) Dr. Mcdowell (plastic surgery) Time Spent in preparation of Discharge (in minutes): 30 Diagnosis - Discharge Diagnosis (1) Seroma infection, postoperative Status: Acute Hospital Course - Lab Results Lab Results: Most Recent Lab Values WBC 8.5 10^3/ul (4.5-11.0) 05/05/18 06:20 RBC 3.68 10^6/uL (3.5-6.1) 05/05/18 06:20 Hgb 10.4 g/dL (12.0-16.0) L 05/05/18 06:20 Hct 30.5 % (36.0-48.0) L 05/05/18 06:20 MCV 82.9 fl (80.0-105.0) 05/05/18 06:20 MCH 28.3 pg (25.0-35.0) 05/05/18 06:20 MCHC 34.1 g/dl (31.0-37.0) 05/05/18 06:20 RDW 12.4 % (11.5-14.5) 05/05/18 06:20 Plt Count 243 10^3/uL (120.0-450.0) 05/05/18 06:20 MPV 9.5 fl (7.0-11.0) 05/05/18 06:20 Gran % 68.5 % (50.0-68.0) H 05/05/18 06:20 Lymph % (Auto) 21.5 % (22.0-35.0) L 05/05/18 06:20 Guadalupe % (Auto) 8.1 % (1.0-6.0) H 05/05/18 06:20 Eos % (Auto) 1.7 % (1.5-5.0) 05/05/18 06:20 Baso % (Auto) 0.2 % (0.0-3.0) 05/05/18 06:20 Gran # 5.80 (1.4-6.5) 05/05/18 06:20 Lymph # (Auto) 1.8 (1.2-3.4) 05/05/18 06:20 Guadalupe # (Auto) 0.7 (0.1-0.6) H 05/05/18 06:20 Eos # (Auto) 0.1 (0.0-0.7) 05/05/18 06:20 Baso # (Auto) 0.02 K/mm3 (0.0-2.0) 05/05/18 06:20 PT 13.4 SECONDS (9.4-12.5) H 05/02/18 04:10 INR 1.17 (0.93-1.08) H 05/02/18 04:10 APTT 33.4 Seconds (25.1-36.5) 05/02/18 04:10 Sodium 137 mmol/L (132-148) 05/02/18 04:10 Potassium 3.9 mmol/L (3.6-5.0) 05/02/18 04:10 Chloride 102 mmol/L (98-107) 05/02/18 04:10 Carbon Dioxide 26 mmol/L (21-33) 05/02/18 04:10 Anion Gap 12 (10-20) 05/02/18 04:10 BUN 12 mg/dL (7-21) 05/02/18 04:10 Creatinine 0.6 mg/dl (0.7-1.2) L 05/02/18 04:10 Est GFR ( Amer) > 60 05/02/18 04:10 Est GFR (Non-Af Amer) > 60 05/02/18 04:10 Random Glucose 92 mg/dL (70-110) 05/02/18 04:10 Calcium 8.8 mg/dL (8.4-10.5) 05/02/18 04:10 Total Bilirubin 0.5 mg/dL (0.2-1.3) 05/02/18 04:10 AST 19 U/L (14-36) 05/02/18 04:10 ALT 33 U/L (7-56) 05/02/18 04:10 Alkaline Phosphatase 54 U/L (38-126) 05/02/18 04:10 Total Protein 6.6 g/dL (5.8-8.3) 05/02/18 04:10 Albumin 3.5 g/dL (3.0-4.8) 05/02/18 04:10 Globulin 3.1 gm/dL 05/02/18 04:10 Albumin/Globulin Ratio 1.2 (1.1-1.8) 05/02/18 04:10 - Hospital Course Hospital Course: 22yo F with PMHx of abdominoplasty in [place] on 04/23/18 who presented to ED for drainage from the incision. Patient states that there were no complications from the procedure besides nausea for 5-6 days post op and that a drain was placed in the incision which was removed prior to [place] to the [place]. Incision was probed with a Qtip at bedside with a large amount of seropurlent fluid expressed. Wound was packed with 1/4 inch iodoform. Plastic surgeon, Dr. Mcdowell was consulted. Pt was given option of OR for washout and wound vac vs conservative treatment with iodaform - pt preferred conservative management. ID was also consulted and placed pt on Merrem and Zyvox. Repeat CT showed decrease in air filled collection. Patient's mother was shown how to change dressing and packing. Patient was discharged home to follow up with Dr. Herndon tomorrow for wound check and Dr. Mcdowell for plastic surgery follow up. Patient given prescriptions for Augmentin and Zyvox as per ID recommendations. OB-PERSONAL CARE WORKER was also consulted for ovarian cysts. Pelvic US was done and showed benign cysts. Dr. Anna was informed and patient was instructed to follow up as an outpatient. Discharge Exam - Head Exam Head Exam: ATRAUMATIC, NORMAL INSPECTION - Respiratory Exam Respiratory Exam: NORMAL BREATHING PATTERN. absent: Respiratory Distress - Cardiovascular Exam Cardiovascular Exam: +S1, +S2 - GI/Abdominal Exam GI & Abdominal Exam: Soft. absent: Distended, Firm, Guarding, Rebound, Rigid, Tenderness Additional comments: Abdominoplasty wound with small opening suprapubic area packed with iodaform, minimal serous drainage today, dressing changed - Neurological Exam Neurological exam: Alert, CN II-XII Intact, Oriented x3 - Psychiatric Exam Psychiatric exam: Normal Affect, Normal Mood Discharge Plan - Discharge Medications Prescriptions: Amoxicillin/Clavulanate [Augmentin 875 MG-125 MG] 1 tab PO BID #14 tab Bacitracin OINT 1 applic TP DAILY #1 tube Linezolid [Zyvox] 600 mg PO BID #14 tab - Follow Up Plan Condition: STABLE Disposition: HOME/ ROUTINE Instructions: Surgical Wound (DC), Wound Care Additional Instructions: Follow up with Dr. Herndon in his office for a wound check tomorrow, 05/06. Call [phone] to make an appointment and ask for the [place] office on [address] Follow up with Dr. Mcdowell in his office in 1 week, call to make appointment. Follow up with Dr. Anna to establish OB-PERSONAL CARE WORKER care. Follow up with your PMD. Continue dressing/packing changes at home. Remove packing, shower, then replace packing and cover with dressing. Cover umbilical wound with bacitracin. Take full course of antibiotics (Augmentin and Zyvox) Return to ED for fever, abdominal pain or worsening drainage. Referrals: Salvador Anna MD [Staff Provider] - Thao Colon MD [Primary Care Provider] - Prasad Mcdowell MD [Staff Provider] - Jamin Herndon MD [Staff Provider] -
[2018-05-05] MEDS ORDERED: Bacitracin 500 Units/gm Oint Foilpak UD ONE (12:28)
--- NOTE | 2018-05-07 00:50 | PN ---
DATE: 05/05/2018 Progress note was lost from yesterday. Medical Records asked me to repeat that. SUBJECTIVE: The patient was seen yesterday, doing well. PHYSICAL EXAMINATION: VITAL SIGNS: Temperature of 98, blood pressure is 120/60, respiratory rate 16. HEENT: Unremarkable. NECK: Supple. LUNGS: Decreased breath sounds. LABORATORY DATA: Laboratories are noted. The patient did have cultures with coagulase-negative staph and corynebacterium. ASSESSMENT AND PLAN: This is a 22-year-old who had surgery done in [place] of liposuction and tummy tuck in [facility], now with infection with cultures noted. Recommended to treat with p.o. antibiotics and follow up as outpatient. Joseph Rodriguez MD
== END 2018-05-05 13:17 | disposition home or self-care (01) | DRG 452 ==
LOC: ED 02:02 → ERH 04:18 → 5RNO 05:50 → OBSVTOIN 05-04 14:32
PROVIDERS: ADMIT Specialist; ATTEND Specialist
DX: L76.34 Postprocedural seroma of skin and subcutaneous tissue following other procedure (principal); T81.4XXA Infection following a procedure, initial encounter; L02.211 Cutaneous abscess of abdominal wall; E66.9 Obesity, unspecified; J45.909 Unspecified asthma, uncomplicated; N83.202 Unspecified ovarian cyst, left side; N83.201 Unspecified ovarian cyst, right side; Z68.28 Body mass index [BMI] 28.0-28.9, adult; Y83.8 Other surgical procedures as the cause of abnormal reaction of the patient, or of later complication, without mention of misadventure at the time of the procedure

== ENCOUNTER 2018-05-14 13:42 | Emergency (ER) | payer MEDICAID ==
[2018-05-14 13:43] VITALS: BMI 28.3
--- NOTE | 2018-05-14 14:40 | ED PDOC ---
Arrival/HPI - General Chief Complaint: Abdominal Pain Time Seen by Provider: 05/14/18 14:06 Historian: Patient - History of Present Illness Narrative History of Present Illness (Text): 05/14/18 14:26 22 y/o female, pmh including abdominalplasty with tummy tuck/liposuction on 08/2018 hospitalized and advised to follow up with Dr. Mcdowell (plastic surgeon in 1 week), nkda, c/o . Pt. had tummy tuck/liposuction performed at [place] around 04/22/2018, had seroma with infectious etiology, admitted and discharge home with augmentin/zyvox, advised to follow up with the plastic surgeon Dr. Mcdowell in 1 week. Pt. stated that due to the insurance problem, she can't see Dr. Mcdowell so she went to see general surgeon DR. Woo Hernandez yesterday which she stated that Dr. Pardo told her to come to the ER for wound check. Pt. has no fever or chills, no night sweat, no rash, no numbness or tingling, no chest pain or shortness of breath, no abdominal or pelvic pain, no other medical or psychological complaints. Pt. stated that the wound has been the same. Past Medical History - Provider Review Nursing Documentation Reviewed: Yes - Past History Past History: No Previous - Infectious Disease Hx of Infectious Diseases: None - Past Medical History Past Medical History: No Previous - Pulmonary Hx Asthma: Yes ( A CHILD) - Musculoskeletal/Rheumatological Hx Falls: No - Psychiatric Hx Psychophysiologic Disorder: No Hx Substance Use: No - Past Surgical History Past Surgical History: No Previous - Surgical History Other/Comment: abdominoplasty 04/23/18 - Anesthesia Hx Anesthesia: No - Suicidal Assessment Feels Threatened In Home Enviroment: No Family/Social History - Physician Review Nursing Documentation Reviewed: Yes Family/Social History: Unknown Family HX Smoking Status: Never Smoked Hx Alcohol Use: No Hx Substance Use: No Hx Substance Use Treatment: No Allergies/Home Meds Allergies/Adverse Reactions: Allergies No Known Allergies Allergy (Verified 05/14/18 13:58) Review of Systems - Review of Systems Constitutional: absent: Fatigue, Fevers Eyes: absent: Vision Changes ENT: absent: Hearing Changes Respiratory: absent: SOB, Cough Cardiovascular: absent: Chest Pain Gastrointestinal: absent: Abdominal Pain, Nausea, Vomiting Musculoskeletal: absent: Arthralgias, Back Pain Skin: Skin Lesions. absent: Rash, Pruritis Neurological: absent: Headache, Dizziness Psychiatric: absent: Anxiety, Depression, Suicidal Ideation Physical Exam Vital Signs Reviewed: Yes Vital Signs Temp Pulse Resp BP Pulse Ox 05/14/18 13:58 99.4 F 85 16 123/77 96 Temperature: Afebrile Blood Pressure: Normal Pulse: Regular Respiratory Rate: Normal Appearance: Positive for: Well-Appearing, Non-Toxic, Comfortable Pain Distress: Mild Mental Status: Positive for: Alert and Oriented X 3 - Systems Exam Head: Present: Atraumatic, Normocephalic Pupils: Present: PERRL Extroacular Muscles: Present: EOMI Conjunctiva: Present: Normal Mouth: Present: Moist Mucous Membranes Neck: Present: Normal Range of Motion Respiratory/Chest: Present: Clear to Auscultation, Good Air Exchange. No: Respiratory Distress, Accessory Muscle Use Cardiovascular: Present: Regular Rate and Rhythm, Normal S1, S2. No: Murmurs Abdomen: Present: Other (lower abdomen above suprapubic noted to have approx. 5cm deep wound with clean packing noted with visible surgical scar noted horizontally, no regional lymphenapathy). No: Tenderness, Distention, Peritoneal Signs, Rebound, Guarding Back: Present: Normal Inspection Upper Extremity: Present: Normal Inspection. No: Cyanosis, Edema Lower Extremity: Present: Normal Inspection. No: Edema Neurological: Present: GCS=15, CN II-XII Intact, Speech Normal Skin: Present: Warm, Dry, Normal Color. No: Rashes Psychiatric: Present: Alert, Oriented x 3, Normal Insight, Normal Concentration Medical Decision Making ED Course and Treatment: 05/14/18 14:44 -Labs ordered -I spoke to the residential framing carpenter Dr. Mario Estrada, discussed about the case, will come down to evaluate the patient and speak to Dr. Pardo. -Paged out to Dr. Pardo made already. 05/14/18 15:09 -Dr. Estrada, spoke to the attending DR. Pardo which he stated that Dr. Pardo is not managing this patient and that's why told her to come to the ER. Dr. Estrada, residential framing carpenter and team, examed the wound and change the dressing, spoke to the general surgeon Dr. Herndon over the phone and advised to discharged home with no labs/radiology test indicated and already created the appointment for her already for follow up. Pt. verbally understanding and agreed with the plan of care by general surgeon team by Dr. Estrada and Dr. Herndon and follow up date. -Pt. refused labs/radiology test either as she had many tests done in [address] scans of the abdomen/pelvis for the past 2 weeks, will cancelled blood work. -Case discussed and examined by Dr. Aguila, ER attending. -Discharge home with education on follow up with Dr. Jamin Herndon, general surgeon for follow up as you were given the appointment date and time, follow up with your own pmd within 2 days, return to the ER for any new or worsening signs or symptoms. - PA / BATTERY TEST ENGINEER / Resident Statement / has reviewed & agrees with the documentation as recorded. / has examined the patient and agrees with the treatment plan. Disposition/Present on Arrival - Present on Arrival Any Indicators Present on Arrival: No History of DVT/PE: No History of Uncontrolled Diabetes: No Urinary Catheter: No History of Decub. Ulcer: No History Surgical Site Infection Following: None - Disposition Have Diagnosis and Disposition been Completed?: Yes Diagnosis: Visit for wound check Disposition: HOME/ ROUTINE Disposition Time: 15:15 Patient Plan: Discharge Condition: GOOD Additional Instructions: -Discharge home with education on follow up with Dr. Jamin Herndon, general surgeon for follow up as you were given the appointment date and time, follow up with your own pmd within 2 days, return to the ER for any new or worsening signs or symptoms. Referrals: Ester Rodney NP [Primary Care Provider] - Follow up with primary Jamin Herndon MD [Staff Provider] - Follow up with primary Forms: [employer] ([place] Islander), WORK NOTE
--- NOTE | 2018-05-14 14:45 | CP.PCM.CON ---
History of Present Illness - History of Present Illness History of Present Illness: General Surgery Consult Note for Dr. Herndon Reason for consult: Swelling near abdominal wound 22 F with PMH of abdominoplasty with fluid collection s/p I&D presents to [facility] for swelling near abdominal wound. Patient was seen and evaluated in the ED. Patient was recently admitted for fluid collection in abdomen 2 weeks ago. She was treated conservatively with antibiotics because she did not want a debridement at the time. Patient was instructed to follow up with plastic surgeon upon discharge. Due to issue with insurance she could not follow up with the plastic surgeon. Patient ended up following up with Dr. Pardo in the office and he performed I&D. He packed the wound and told the patient to either follow up with her PMD or [facility] ED for packing changes. Patient notice swwellling on ride side of incision and became worried so she went to ED. She denies pain. Denies fever/chills. Patient reports to drainage or foul odor form wound. PMD: [facility] PMH: denies PSH: abdominoplasty 04/23/18 Meds: Augmentin, Ibuprofen ALL: NKDA FH: non-contributory Social: [place] occasionally, denies ETOH and drugs Review of Systems - Review of Systems All systems: reviewed and no additional remarkable complaints except (as per HPI ) Past Patient History - Infectious Disease Hx of Infectious Diseases: None - Past Medical History & Family History Past Medical History?: Yes - Past Social History Smoking Status: Never Smoked - PULMONARY Hx Asthma: Yes ( A CHILD) - MUSCULOSKELETAL/RHEUMATOLOGICAL Hx Falls: No - PSYCHIATRIC Hx Psychophysiologic Disorder: No Hx Substance Use: No - SURGICAL HISTORY Other/Comment: abdominoplasty 04/23/18 - ANESTHESIA Hx Anesthesia: No Meds Allergies/Adverse Reactions: Allergies Allergy/AdvReac Type Severity Reaction Status Date / Time No Known Allergies Allergy Verified 05/14/18 13:58 Physical Exam - Constitutional Appears: No Acute Distress - Head Exam Head Exam: ATRAUMATIC, NORMOCEPHALIC - Eye Exam Eye Exam: EOMI, Normal appearance Pupil Exam: PERRL - ENT Exam ENT Exam: Mucous Membranes Moist - Respiratory Exam Respiratory Exam: NORMAL BREATHING PATTERN - Cardiovascular Exam Cardiovascular Exam: REGULAR RHYTHM - GI/Abdominal Exam GI & Abdominal Exam: Normal Bowel Sounds, Soft. absent: Distended, Firm, Guarding, Rebound, Tenderness Additional comments: abdominaplasty incision clean dry and intact, middle portion of incsion is opened from I&D - packing and dressing was changed today in ED - Extremities Exam Extremities exam: Positive for: normal capillary refill - Back Exam Back exam: absent: CVA tenderness (L), CVA tenderness (R) - Neurological Exam Neurological exam: Alert, Oriented x3 - Psychiatric Exam Psychiatric exam: Normal Affect, Normal Mood - Skin Skin Exam: Dry, Normal Color, Warm Results - Vital Signs Recent Vital Signs: Last Vital Signs Temp 99.4 F 05/14/18 13:58 Pulse 85 05/14/18 13:58 Resp 16 05/14/18 13:58 BP 123/77 05/14/18 13:58 Pulse Ox 96 05/14/18 13:58 Assessment & Plan - Assessment and Plan (Free Text) Assessment: 22F s/p I&D of abdominoplasty incision Plan: -Continue antibiotics as prescribed -Continue wound care -May go to PMD or [facility] ED for packing changes every 2 days -Follow up with Dr. Herndon at earliest appointment (currently scheduled for Jun 12 at 4pm) -Further recommendations as per Dr. Katrina Pastor PGY2 - Date & Time Date: 05/14/18 Time: 15:00
[2018-05-14 15:25] VITALS: BP 124/79; PULSE 82; RESP 17; TEMP 99.3; O2SAT 98
== END 2018-05-14 15:25 | disposition home or self-care (01) ==
LOC: ED 13:42
DX: Z48.00 Encounter for change or removal of nonsurgical wound dressing (principal)

== ENCOUNTER 2018-06-22 19:45 | Emergency (ER) | payer MEDICAID ==
[2018-06-22 19:45] VITALS: BMI 28.3
[2018-06-22 20:10] VITALS: RESP 16
--- NOTE | 2018-06-22 21:05 | ED PDOC ---
Arrival/HPI - General Historian: Patient - History of Present Illness Time/Duration: > month Symptom Course: Unchanged Quality: Other (none) Severity Level: 1 <Forrest Clemons - Last Filed: 06/22/18 23:00> <Cole Blanco - Last Filed: 06/23/18 00:01> - General Chief Complaint: Wound Check Time Seen by Provider: 06/22/18 20:00 - History of Present Illness Narrative History of Present Illness (Text): 06/22/18 21:04 Patient is a 22 year old female with a past medical history of an Abdominalplasty with tummy tuck liposuction on 04/22/2018 [place] to [place] Emergency department for evaluation of surgical wound. Patient was seen by her primary care physician earlier today and was advised to go to the emergency room to have her surgical wound from 2 months ago closed. Patient reports no drainage and states that the wound has been healing well. There is no foul odor and no pain associated with the wound. Patient reports previously taking antibiotics for a wound infection but the infection has cleared. Patient has no complaints at this time. Denies fevers, chills, nausea, vomiting, diarrhea, constipation, chest pain, shortness of breath, abdominal pain, numbness or tingling. (Forrest Clemons) Past Medical History - Provider Review Nursing Documentation Reviewed: Yes - Past History Past History: No Previous - Infectious Disease Hx of Infectious Diseases: None - Past Medical History Past Medical History: No Previous - Cardiac Hx Cardiac Disorders: No - Pulmonary Hx Respiratory Disorders: Yes Hx Asthma: Yes ( A CHILD) - Neurological Hx Neurological Disorder: No - HEENT Hx HEENT Disorder: No - Renal Hx Renal Disorder: No - Endocrine/Metabolic Hx Endocrine Disorders: No - Hematological/Oncological Hx Blood Disorders: No - Integumentary Hx Dermatological Disorder: Yes Other/Comment: POORLY HEALING WOUND - Musculoskeletal/Rheumatological Hx Musculoskeletal Disorders: No - Gastrointestinal Hx Gastrointestinal Disorders: No - Genitourinary/Gynecological Hx Genitourinary Disorders: No - Psychiatric Hx Psychophysiologic Disorder: No Hx Substance Use: No - Past Surgical History Past Surgical History: No Previous - Surgical History Other/Comment: TUMMY TUCK - Anesthesia Hx Anesthesia: No - Suicidal Assessment Feels Threatened In Home Enviroment: No <Forrest Clemons - Last Filed: 06/22/18 23:00> Family/Social History - Physician Review Nursing Documentation Reviewed: Yes Family/Social History: No Known Family HX Smoking Status: Never Smoked Hx Alcohol Use: No Hx Substance Use: No Hx Substance Use Treatment: No <Forrest Clemons - Last Filed: 06/22/18 23:00> Allergies/Home Meds <Forrest Clemons - Last Filed: 06/22/18 23:00> <Cole Blanco - Last Filed: 06/23/18 00:01> Allergies/Adverse Reactions: Allergies No Known Allergies Allergy (Verified 06/22/18 20:02) Home Medications: Home Meds Medication Instructions Recorded Confirmed Clindamycin [Cleocin] 150 mg PO TID 06/22/18 06/22/18 Review of Systems - Physician Review All systems were reviewed & negative as marked: Yes - Review of Systems Constitutional: Normal. absent: Fatigue Eyes: Normal ENT: Normal Respiratory: Normal. absent: SOB, Cough Cardiovascular: Normal. absent: Chest Pain, Palpitations Gastrointestinal: Other (surgical wound that has not closed completely. ). absent: Abdominal Pain, Constipation, Diarrhea, Nausea, Vomiting, Appetite Changes Genitourinary Female: Normal. absent: Dysuria, Frequency, Vaginal Bleeding, Vaginal Discharge Musculoskeletal: Normal Skin: Normal Neurological: Normal. absent: Headache Endocrine: Normal Hemo/Lymphatic: Normal Psychiatric: Normal <Forrest Clemons - Last Filed: 06/22/18 23:00> Physical Exam Vital Signs Reviewed: Yes Temperature: Afebrile Blood Pressure: Normal Pulse: Regular Respiratory Rate: Normal Appearance: Positive for: Well-Appearing, Non-Toxic, Comfortable Pain Distress: None Mental Status: Positive for: Alert and Oriented X 3 - Systems Exam Head: Present: Atraumatic, Normocephalic Extroacular Muscles: Present: EOMI Conjunctiva: Present: Normal Mouth: Present: Moist Mucous Membranes, Normal Lips Respiratory/Chest: Present: Clear to Auscultation, Good Air Exchange. No: Respiratory Distress, Accessory Muscle Use Cardiovascular: Present: Regular Rate and Rhythm, Normal S1, S2. No: Murmurs Abdomen: Present: Scars (Abdominalplasty with tummy tuck liposuction), Other ( open wound with packing in center of scar. clean base with granulation tissue. No drainage, no erythema, well healing surgical wound.). No: Tenderness, Distention Upper Extremity: Present: Normal Inspection, NORMAL PULSES Lower Extremity: Present: Normal Inspection, NORMAL PULSES. No: CALF TENDERNESS Neurological: Present: GCS=15, Speech Normal, Motor Func Grossly Intact Skin: Present: Warm, Dry, Normal Color. No: Rashes Psychiatric: Present: Alert, Oriented x 3, Normal Insight, Normal Concentration <Forrest Clemons - Last Filed: 06/22/18 23:00> Vital Signs Temp Pulse Resp BP Pulse Ox 06/22/18 20:03 98.9 F 85 16 122/81 96 Medical Decision Making Reassessment Condition: Unchanged <Forrest Clemons - Last Filed: 06/22/18 23:00> <Cole Blanco - Last Filed: 06/23/18 00:01> ED Course and Treatment: Discussed case in length with patient, along with Resident [facility]ie and Dr. Blanco. She was informed that this has nothing to do with her insurance. She needs to allow the wound to heal with time. It would be inappropriate to suture the wound close like she is requesting. She was informed that she needs to call her insurance company and find a surgeon that accepts her insurance to follow up with for further wound care. The wound was evaluated and did not appear to have any signs of infection. No labs or imaging necessary at this time. Patient to be discharged home. (Forrest Clemons) 06/22/18 22:55 Pt seen and evaluated with medical office supervisor. Aware and agree with HPI, clinical findings, plan, and management. Pt, whose past medical history includes abdominoplasty with liposuction on 04/22/2018, presented for surgical wound evaluation. (Cole Blanco) - PA / [employer] / Resident Statement / has reviewed & agrees with the documentation as recorded. / has examined the patient and agrees with the treatment plan. <Cole Blanco - Last Filed: 06/23/18 00:01> Disposition/Present on Arrival - Present on Arrival Any Indicators Present on Arrival: No History of DVT/PE: No History of Uncontrolled Diabetes: No Urinary Catheter: No History of Decub. Ulcer: No History Surgical Site Infection Following: None - Disposition Have Diagnosis and Disposition been Completed?: Yes Disposition Time: 21:51 Patient Plan: Discharge <Forrest Clemons - Last Filed: 06/22/18 23:00> <Cole Blanco - Last Filed: 06/23/18 00:01> - Disposition Diagnosis: Skin wound from surgical incision Disposition: HOME/ ROUTINE Patient Problems: Current Active Problems Problem Status Onset Skin wound from surgical incision Acute Condition: GOOD Additional Instructions: Patient is to follow up with her primary care physician. Patient is to call her insurance company to find a plastic surgeon to follow up with up for further management of her healing, surgical wound. If patient experiences any new or worsening symptoms, please go directly to the nearest emergency facility. Referrals: Thao Colon MD [Primary Care Provider] - Follow up with primary Forms: [employer] (Norwegian)
[2018-06-23 01:11] VITALS: BP 125/73; PULSE 80; TEMP 98.8; O2SAT 97
== END 2018-06-22 21:53 | disposition home or self-care (01) ==
LOC: ED 19:45
DX: T81.89XA Other complications of procedures, not elsewhere classified, initial encounter (principal)